=== PATIENT | female | born 2005 | race Two or more races ===

== ENCOUNTER 2024-03-17 16:56 | Emergency (ER) | payer MEDICAID, SELFPAY ==
[2024-03-17 16:59] VITALS: BMI 30.1
[2024-03-17 17:13] VITALS: BP 132/84; PULSE 77; RESP 20; TEMP 37.5; O2SAT 99
--- NOTE | 2024-03-17 17:27 | XR_ITS ---
Examination: Pelvic ultrasound, transabdominal, complete Technique: Transabdominal ultrasound of the pelvis performed using grayscale imaging Date and time of exam: March 17, 2024 1809 hours INDICATIONS: Right-sided pelvic pain beginning 3 days ago. FINDINGS: Uterus 6.3 x 2.9 x 3.7 cm. Endometrial stripe 0.4 cm No uterine mass or intrauterine gestation. Right ovary 3.0 x 3.1 cm arterial flow Left ovary 2.8 x 2.2 cm monitor flow No fluid in the cul-de-sac IMPRESSION: Negative examination
--- NOTE | 2024-03-17 17:28 | PD.EDRME ---
Rapid Medical Screening Exam RME Arrival date/time: 03/17/24 16:56 18-year-old female presents with complaints of right-sided pelvic pain Chief Complaint: Abdominal Pain Time Seen by Provider: 03/17/24 17:16 Vital signs: Vital Signs Temperature 99.5 F 03/17/24 17:13 Pulse Rate 77 03/17/24 17:13 Respiratory Rate 20 03/17/24 17:13 Blood Pressure 132/84 H 03/17/24 17:13 Pulse Oximetry (%) 99 03/17/24 17:13 Oxygen Delivery Method Room Air 03/17/24 17:13
[2024-03-17 18:14] LABS: Basophils % (Auto) 0 % (0-2.5); Eosinophils # (Auto) 0.1 Thou/mm3 (0.0-0.5); Eosinophils % (Auto) 1 % (0-10); Hematocrit 41.4 % (36.0-46.0); Hemoglobin 14.1 g/dL (12.0-16.0); Immature Granulocytes % (Auto) 0 % (0-0); Immature Granulocytes Auto 0.04 Thou/mm3 (0.00-0.00); Lymphocytes # (Auto) 2.3 Thou/mm3 (1.0-4.8); Lymphocytes % (Auto) 20 % (10-50); Mean Corpuscular HGB Conc 34.1 g/dl (31.0-37.0); Mean Corpuscular Volume 97 fL (80-100); Monocytes # (Auto) 0.6 Thou/mm3 (0.0-0.8); Monocytes % (Auto) 5 % (0-12); Neutrophils # (Auto) 8.7 Thou/mm3 (1.8-7.7); Neutrophils % (Auto) 74 % (37-80); Nucleated Red Blood Cell % 0 /100 WBC (0); Platelet Count 313 Thou/mm3 (140-440); RDW Standard Deviation 42.6 fL (36.4-46.3); Red Blood Count 4.27 Miln/mm3 (4.00-5.20); White Blood Count 11.8 Thou/mm3 (4.5-11.0)
[2024-03-17 18:35] LABS: Collection Type, Urine Clean Catch
[2024-03-17 18:36] LABS: Alanine Aminotransferase 23 U/L (10-49); Albumin, Serum 4.7 gm/dL (3.5-5.0); Albumin/Globulin Ratio 1.4 (1.2-2.2); Alkaline Phosphatase 110 U/L (46-116); Anion Gap 10 (7-16); Aspartate Amino Transferase 21 U/L (0-34); BUN/Creatinine Ratio 17 Ratio (12-20); Bilirubin,Total 0.4 mg/dL (0.3-1.2); Blood Urea Nitrogen 12 mg/dL (9-23); Calcium 9.2 mg/dL (8.3-10.6); Calcium (Corrected) 9.2 mg/dL (8.5-10.1); Carbon Dioxide 24.1 mMol/L (20.0-31.0); Chloride 105 mMol/L (98-107); Creatinine (Component) 0.7 mg/dL (0.6-1.3); Estimated Creatinine Clearance 107.2 mL/min (>60); Globulin 3.3 gm/dL (2.3-3.5); Glucose 102 mg/dL (74-106); Lipase 37 U/L (12-53); Osmolality,Calculated 277 (275-295); Potassium 4.3 mMol/L (3.4-5.1); Sodium 139 mMol/L (136-145); eGFR > 60 See Note
[2024-03-17 19:06] LABS: Bacteria,Urine Rare; Bilirubin,Urine Negative (Negative); Blood,Urine 2+ (Negative); Clarity,Urine Clear (Clear/Hazy); Color,Urine Lt-Yellow (Lt Yel-Yel); Culture Indicated,Urine Not Indicated; Glucose, Urine Negative (Negative); Ketones,Urine Negative (Negative); Leukocyte Esterase,Urine Positive (Negative); Nitrite,Urine Negative (Negative); Protein,Urine Negative (Neg - Trace); RBC,Urine 9 /hpf (0-3); Specific Gravity,Urine 1.022 (1.001-1.035); Squamous Epithelial Cell,Urine 15 /hpf (0-5); Urobilinogen,Urine Negative mg/dL (0.0-1.0); WBC,Urine 3 /hpf (0-5)
[2024-03-17 19:08] LABS: HCG Qualitative,Urine Negative
[2024-03-17 21:56] VITALS: BP 138/61; PULSE 56; RESP 18; TEMP 37.2; O2SAT 98
--- NOTE | 2024-03-17 22:08 | XR_ITS ---
Examination: CT abdomen with intravenous contrast CT pelvis with intravenous contrast 2-D coronal reconstructions 2-D sagittal reconstructions Date and time of exam:March 17, 1999 2521 hours INDICATIONS: Onset right lower abdominal pain today. CTDI: vol (mGy) 7.08 DLP: (mGycm) 435 Technique: Multiple axial sections of the abdomen and pelvis have been obtained. 64 slice high-resolution scanner used. 3 mm axial sections have been obtained, post intravenous injection of 60 cc [id number] 2-D sagittal, coronal reconstructions obtained. Low dose protocols were performed. One or more of the following dose reduction techniques were used; automated exposure control, adjustment of the mA and/or KV according to patient size, use of iterative reconstruction technique. Findings: No focal liver or splenic lesions No gallstones No pancreatic or adrenal mass. No hydronephrosis, minimal right hydroureter Aorta normal size Normal appendix No bowel obstruction No diverticulitis Small ovarian follicular cysts Urinary bladder intact 4 mm calculus at the right ureterovesical junction The osseous structures are intact IMPRESSION: Normal appendix Minimal right hydroureter secondary to 4 mm calculus at the right ureterovesical junction
[2024-03-17] MEDS: KETOROLAC INJ 60 MG/2 ML VIAL 30 MG IM (22:13)
[2024-03-17] MEDS: ONDANSETRON ODT 4 MG TABRAP PO (23:31)
--- NOTE | 2024-03-18 00:11 | EDNOTE_ITS ---
ED Abdominal Pain RME/HPI General Chief Complaint: Abdominal Pain Stated complaint: RIGHT LOWER ABD PAIN Time seen by provider: 03/17/24 17:16 Arrival date/time: 03/17/24 16:56 18-year-old female no significant past medical history presents emergency department complaining of right lower quadrant abdominal pain that radiates down to her pelvis. Patient reports pain has been ongoing for 3 days. Patient reports associated symptom of nausea and vomiting. Patient denies any fever, dysuria, vaginal bleeding, or any other associated symptom. Source: patient Mode of arrival: ambulatory Limitations: no limitations RME / HPI RME / HPI narrative: 03/17/24 16:56 18-year-old female presents with complaints of right-sided pelvic pain Related Data Previous Rx's ?Medication ?Instructions ?Recorded hydrocodone 5 mg-acetaminophen 325 1 tab PO BID PRN pa in #10 tabs 03/18/24 mg tablet ondansetron 4 mg disintegrating 4 mg PO Q8H PRN nausea and 03/18/24 tablet vomiting #7 tabs tamsulosin 0.4 mg capsule 0.4 mg PO QDAY #5 caps 03/18 Allergies Allergy/AdvReac Type Severity Reaction Status Date / Time No Known Allergies Allergy Verified 03/17/24 16:57 Review of Systems Review of Systems Systems Reviewed: All systems reviewed, normal except as documented Constitutional Constitutional: Reports system reviewed and no additional complaints, except as documented, Denies body ache(s), Denies chills and Denies fever(s) Eyes Eyes: Reports system reviewed and no additional complaints, except as documented and Denies change in vision ENT Ears, Nose, Mouth, and Throat: Reports system reviewed and no additional complaints, except as documented, Denies disequilibrium, Denies dizziness, Denies sore throat and Denies vertigo Cardiovascular Cardiovascular: Reports system reviewed and no additional complaints, except as documented, Denies chest pain and Denies dyspnea Respiratory Respiratory: Reports system reviewed and no additional complaints, except as documented, Denies chest congestion, Denies cough and Denies dyspnea Gastrointestinal Gastrointestinal: Reports system reviewed and no additional complaints, except as documented, Reports abdominal pain, Reports nausea and Reports vomiting Musculoskeletal Musculoskeletal: Reports system reviewed and no additional complaints, except as documented, Denies abnormal gait and Denies arthralgias Integumentary/Breasts Skin/Breast: Reports system reviewed and no additional complaints, except as documented, Denies erythema, Denies rash and Denies wounds Neurologic Neurologic: Reports system reviewed and no additional complaints, except as documented, Denies abnormal gait, Denies disequilibrium, Denies dizziness and Denies vertigo Past Medical History Past Medical History CARDIAC: Negative Cardiac Disorders RESPIRATORY: Negative Asthma GENITOURINARY: Negative Renal Disease ENDOCRINE: Negative Diabetes Mellitus Type 2 HEMATOLOGIC: Negative Sickle Cell Disease Social History SMOKING STATUS: Never smoker ED Exam General Limitations: Present no limitations General appearance: Present alert and in no apparent distress Head Head exam: Present atraumatic Eye Eye exam: Present normal appearance, PERRL and EOMI ENT ENT exam: Present normal exam, normal oropharynx and mucous membranes moist Neck Neck exam: Present normal inspection, full ROM and trachea midline Chest Chest inspection: Present normal inspection and symmetric chest wall rise Respiratory Respiratory exam: Present normal lung sounds bilaterally Cardiovascular Cardiovascular exam: Present regular rate, normal rhythm and normal heart sounds Abdominal Exam Abdominal exam: Present soft and normal bowel sounds Extremities Exam Extremities exam: Present normal inspection and full ROM Back Exam Back exam: Present normal inspection and full ROM Neurological Exam Neurological exam: Present alert, oriented X3 and CN II-XII intact Psychiatric Psychiatric exam: Present normal affect and normal mood Skin Skin exam: Present warm, dry, intact and normal color Course Quality Measures none Orders Category Date Time Status CT Screening NOW Care 03/17/24 22:[address] abdomen pelvis w con Stat Exams 03/17/24 22:08 Completed US pelvic complete Stat Exams 03/17/24 17:27 Completed CBC Stat Lab 03/17/24 17:53 Completed Comprehensive Metabolic Panel Stat Lab 03/17/24 17:53 Completed HCG Qualitative,Urine Stat Lab 03/17/24 18:29 Completed Lipase Stat Lab 03/17/24 17:53 Completed UA, C/S IF [Urinalysis, C/S if Indicated] Stat Lab 03/17/24 18:29 Completed HYDROcodone*/APAP 5/325 [[place] 5/325] Med 03/18/24 00:21 Discontinued 1 tab PO X1 ONE Ketorolac Inj [Toradol Inj] Med 03/17/24 21:59 Discontinued 30 mg IM X1 ONE Ondansetron Odt [Zofran Odt] Med 03/17/24 22:31 Discontinued 4 mg PO X1 ONE Vital Signs Vital signs: Vital Signs Temperature 99.5 F 03/17/24 17:13 Pulse Rate 77 03/17/24 17:13 Respiratory Rate 20 03/17/24 17:13 Blood Pressure 132/84 H 03/17/24 17:13 Pulse Oximetry (%) 99 03/17/24 17:13 Oxygen Delivery Method Room Air 03/17/24 17:13 99% room air within normal limits Abdominal Pain MDM MDM Narrative MDM Narrative:: 18-year-old female no significant past medical history presents emergency department complaining of right lower quadrant abdominal pain that radiates down to her pelvis. Patient reports pain has been ongoing for 3 days. Patient reports associated symptom of nausea and vomiting. Patient denies any fever, dysuria, vaginal bleeding, or any other associated symptom. CBC mild leukocytosis 11.8. CMP was unremarkable. Urinalysis was also unremarkable. Pelvic ultrasound was unremarkable. CT scan was obtained due to patient's continued pain right lower quadrant and needed to rule out acute appendicitis. CT scan impression: Normal appendix Minimal right hydroureter secondary to 4 mm calculus at the right ureterovesical junction Patient appears nontoxic and is hemodynamically stable. Patient was given Toradol and reported significant improvement in pain. Patient discharged with pain medication and Flomax and instructed to increase fluid intake and follow-up with primary care provider request referral to urologist. Instructed to return to the emergency department for any worsening symptoms or as needed. Antibiotics were not used due to urinalysis unremarkable and patient's WBC mildly elevated. Patient data External records reviewed:: [facility] previous records Clinical information provided by:: patient and family Social determinants that could affect healthcare access:: none Patient has the following chronic illnesses:: None How is presenting disease/condition affected by chronic disease/condition?: no chronic disease Evaluation data The following diagnostics were reviewed and interpreted by me:: lab results and radiology exam(s) Lab and/or radiology exams considered but not ordered:: Ordered Interpretation Summary: Interpreted by me Medications / Prescriptions Medications or Prescriptions considered but not ordered:: Ordered Medication administrations:: Medication Administration History Discontinued Medications Hydrocodone Bitart/Acetaminophen (Hydrocodone/Apap 5/325 Tablet) 1 tab PO X1 ONE Stop: 03/18/24 00:22 Last Admin: 03/18/24 00:24 Dose: 1 tab Documented By: EO Ketorolac Tromethamine (Ketorolac Inj 60 Mg/2 Ml Vial) 30 mg IM X1 ONE Stop: 03/17/24 22:00 Last Admin: 03/17/24 22:13 Dose: 30 mg Documented By: FRANCISCO Ondansetron HCl (Ondansetron Odt 4 Mg Tabrap) 4 mg PO X1 ONE; Protocol Stop: 03/17/24 22:32 Last Admin: 03/17/24 23:31 Dose: 4 mg Documented By: FRANCISCO Given Consultations Consultation(s) initiated? (list below): No Diagnosis Differential diagnosis abdominal pain: acute appendicitis, calculus of kidney, constipation, diverticulitis, endometriosis, gastroenteritis, pancreatitis and small bowel obstruction Most likely diagnosis given after review of the tests above:: Calculus of kidney Admission Indicated Admission indicated?: not indicated Admission Request Was there a request for admission?: No Disposition Plan Disposition Plan: Discharge Discharge Attestation Discharge Attestation: The patient and all family members were given an opportunity to ask questions and understood the discharge instructions. Discharge instructions specifically effects, indications for sooner follow up or return to the emergency department, and the expected course of current diagnosis. Patient condition: Stable Discharge Plan Plan Patient Disposition: HOME (Self Care) Disposition Comment: Stable Prescriptions/Referrals Prescriptions/Med Rec: New tamsulosin 0.4 mg capsule 0.4 mg PO QDAY Qty: 5 0RF hydrocodone-acetaminophen 5-325 mg tablet 1 tab PO BID MDD 2 tabs PRN (Reason: pain) Qty: 10 0RF ondansetron 4 mg tablet,disintegrating 4 mg PO Q8H PRN (Reason: nausea and vomiting) Qty: 7 0RF Referrals: No Primary/Family,Physician [Primary Care Provider] - In 1 week Problem List Clinical Impression: Calculus of kidney Patient/Caregiver Discharge Instructions Discharge Activity: activity as tolerated Education Materials: Exercise to Help Your Kidneys, Identifying Kidney Stones, ED Kidney Stone w/ Colic Additional Instructions: Take pain medication as prescribed. Drink plenty of fluids and stay hydrated. Close follow-up with primary care provider request referral to urologist. Return to emergency department for any fever, chills, vomiting, worsening symptoms, or as needed. Print Language: Martiniquais Stand Alone Forms: Bre Award Info., Patient Portal Info Letter PA/EDWARDO Supervising Physician PA/EDWARDO Supervising Physician: Dr. Sow
[2024-03-18] MEDS: HYDROcodone/APAP 5/325 TABLET 1 TAB PO (00:24)
== END 2024-03-18 00:28 | disposition home or self-care (01) ==
PROVIDERS: Nurse Practitioner Primary Care; Emergency Provider Emergency Medicine
DX: N20.0 Calculus of kidney (principal)
CPT/HCPCS: 36415; 74177; 76856; 80053; 81001; 81025; 83690; 85025; 96372; 99285; A4649; J1885; Q0162; Q9967; A9270